=== PATIENT | male | born 1970 | race Caucasian/White ===

== ENCOUNTER 2018-06-07 11:36 | Emergency (ER) | payer BC ==
[2018-06-07 11:49] VITALS: RESP 18; TEMP 98.3
--- NOTE | 2018-06-07 12:05 | ED ---
General Adult HPI - General Chief complaint: Extremity Injury, Lower Stated complaint: Knee injury/popped Time Seen by Provider: 06/07/18 11:51 Source: patient Mode of arrival: wheelchair Limitations: no limitations - History of Present Illness Initial comments: Dictation was produced using [employer] dictation software. please excuse any grammatical, word or spelling errors. Chief Complaint: 48-year-old male with no significant comorbidities presents with right knee pain and swelling. History of Present Illness: Patient is a 48-year-old female approximately 2 hours prior to arrival patient was trying to move a dresser out of the bed of a truck. He states he was using a twisting motion Friday when he immediately felt a pop and significant weakness. Feels as though when he tries to stand his knee once to bend medially. He noted significant knee swelling immediately. Patient denies any history of any surgeries The ROS documented in this emergency department record has been reviewed and confirmed by me. Those systems with pertinent positive or negative responses have been documented in the HPI. All other systems are other negative and/or noncontributory. PHYSICAL EXAM: General Impression: Alert and oriented x3, not in acute distress HEENT: Normocephalic atraumatic, extra-ocular movements intact, pupils equal and reactive to light bilaterally, mucous membranes moist. Cardiovascular: Heart regular rate and rhythm, S1&S2 audible, no murmurs, rubs or gallops Chest: Lungs clear to auscultation bilaterally, no rhonchi, no wheeze, no rales Abdomen: Bowel sounds present, abdomen soft, non-tender, non-distended, no organomegaly Musculoskeletal: Pulses present and equal in all extremities, no peripheral edema Motor: no focal deficits noted Neurological: CN II-XII grossly intact, no focal motor or sensory deficits noted Skin: Intact with no visualized rashes Psych: Normal affect and mood Right knee: Significant joint effusion, no tenderness to the medial or lateral side of the knee. ED course: 48-year-old male with acute knee pain and swelling. Vital signs upon arrival are within acceptable limits. X-ray was performed showing joint effusion. Radiology is concerned about questionable lipohemarthrosis suggesting an occult fracture. This point there isn't any signs of tibial plateau fracture. Patient placed in the immobilizer. He is given prescription for by mouth analgesics. There is strong clinical suspicion of anterior cruciate ligament tear. Patient given prescription for crutches. He is told to be nonweightbearing until further notice by orthopedic surgery. Patient is Center agreeable to disposition. - Related Data Previous Rx's Medication Instructions Recorded HYDROcodone/APAP 5-325MG [[place] 1 tab PO Q6HR PRN 3 Days #12 tab 06/07/18 5-325] Allergies Allergy/AdvReac Type Severity Reaction Status Date / Time No Known Allergies Allergy Verified 06/07/18 11:48 Review of Systems ROS Statement: Those systems with pertinent positive or pertinent negative responses have been documented in the HPI. ROS Other: All systems not noted in ROS Statement are negative. Past Medical History Past Medical History: No Reported History History of Any Multi-Drug Resistant Organisms: None Reported Past Surgical History: No Surgical Hx Reported Past Psychological History: No Psychological Hx Reported Smoking Status: Current every day smoker Past Alcohol Use History: Occasional Past Drug Use History: None Reported General Exam Limitations: no limitations Course Vital Signs 06/07/18 11:48 Temperature 98.3 F Pulse Rate 72 Respiratory 18 Rate Blood Pressure 151/92 O2 Sat by Pulse 100 Oximetry Disposition Clinical Impression: Knee pain Disposition: HOME SELF-CARE Condition: Good Instructions (If sedation given, give patient instructions): Knee Pain (ED) Prescriptions: HYDROcodone/APAP 5-325MG [[place] 5-325] 1 tab PO Q6HR PRN 3 Days #12 tab PRN Reason: Severe Pain Is patient prescribed a controlled substance at d/c from ED?: Yes If prescribed controlled substance>3 days was MAPS reviewed?: Prescribed <3 Days Referrals: Philip Velez MD [STAFF PHYSICIAN] - 1-2 days Time of Disposition: 13:19
--- NOTE | 2018-06-07 13:02 | XR ---
EXAMINATION TYPE: XR knee complete RT , 3 VIEWS DATE OF EXAM ORDERED: 06/07/2018 HISTORY: Pain. COMPARISON: None. FINDINGS: Joint spaces are well maintained. There is a questionable likely hemarthrosis on the right . No discrete fracture is seen. IMPRESSION: QUESTIONABLE LIKELY HEMARTHROSIS SUGGEST AN OCCULT FRACTURE. NO DISCRETE FRACTURES IDENTIFIED.
[2018-06-07 13:43] VITALS: BP 136/96; PULSE 77
== END 2018-06-07 13:42 | disposition home or self-care (01) ==
LOC: EC 11:36
DX: M25.561 Pain in right knee (principal); F17.200 Nicotine dependence, unspecified, uncomplicated; X50.1XXA Overexertion from prolonged static or awkward postures, initial encounter
CPT/HCPCS: 73562; 99283; L1830

== ENCOUNTER → 2018-06-10 | Outpatient (CLI) | payer BC ==
--- NOTE | 2018-06-11 07:39 | CT ---
EXAMINATION TYPE: CT knee RT wo con DATE OF EXAM: 06/10/2018 COMPARISON: HISTORY: Right knee fx CT DLP: 265 mGycm Automated exposure control for dose reduction was used. Unenhanced CT of the right knee was performed in the axial sagittal and coronal planes with bone and soft tissue window settings reviewed. FINDINGS: There is a moderately comminuted and depressed fracture of the lateral tibial plateau. Fracture depre ssion is estimated at approximately 1.5 cm. Fracture extends into the intercondylar region. There is fracture displacement of 1 cm. No additional fractures are evident at this time. There is evidence of a hemarthrosis. No evidence for soft tissue mass. IMPRESSION: Moderately comminuted and depressed fracture of the lateral tibial plateau.
== END | disposition home or self-care (01) ==
LOC: RADCTMAIN 16:53
PROVIDERS: ATTEND Orthopaedic Surgery Sports Medicine
DX: S82.141A Displaced bicondylar fracture of right tibia, initial encounter for closed fracture (principal)

== ENCOUNTER 2022-11-12 07:43 | Day surgery (SDC) | payer BC ==
[2022-11-07 16:04] VITALS: BMI 30.8
[~2022-11-12 07:43] MED LIST: LACTATED RINGERS 1,000 ML IV SCH
[2022-11-12 08:14] VITALS: TEMP 97.3
[2022-11-12] MEDS ORDERED: PROPOFOL 10 MG/ML 20 ML VIAL IV ONE (08:49)
--- NOTE | 2022-11-12 08:54 | P.GSHP ---
History of Present Illness H&P Date: 11/12/22 Chief Complaint: Colon cancer screening 52-year-old male here for colonoscopy. He has not had 1 previously. No bowel complaints. No family history of colon cancer. Past Medical History Past Medical History: Hyperlipidemia, Hypertension Additional Past Medical History / Comment(s): take humira for eyes uvitis History of Any Multi-Drug Resistant Organisms: None Reported Past Surgical History: No Surgical Hx Reported Additional Past Surgical History / Comment(s): fracture right tibia plateau screws and plate, Past Anesthesia/Blood Transfusion Reactions: No Reported Reaction Smoking Status: Former smoker Medications and Allergies Home Medications Medication Instructions Recorded Confirmed Type Adalimumab [Humira Pen] 40 mg SQ [id number] 11/07/22 11/12/22 History Atorvastatin [Lipitor] 20 mg PO DAILY 11/07/22 11/07/22 History Losartan [Cozaar] 25 mg PO DAILY 11/07/22 11/07/22 History Allergies Allergy/AdvReac Type Severity Reaction Status Date / Time No Known Allergies Allergy Verified 11/12/22 07:56 Surgical - Exam Vital Signs Temp Pulse Resp BP Pulse Ox 97.3 F L 83 16 149/82 98 11/12/22 08:12 11/12/22 08:12 11/12/22 08:12 11/12/22 08:12 11/12/22 08:12 Physical exam: General: Well-developed, well-nourished HEENT: Normocephalic, sclerae nonicteric Abdomen: Nontender, nondistended Extremities: No edema Neuro: Alert and oriented Assessment and Plan (1) Colon cancer screening Narrative/Plan: Will proceed with colonoscopy at this time. Current Visit: Yes Status: Acute Code(s): Z12.11 - ENCOUNTER FOR SCREENING FOR MALIGNANT NEOPLASM OF COLON SNOMED Code(s): 085153938
--- NOTE | 2022-11-12 09:10 | P.PCN ---
Date of Procedure: 11/12/22 Procedure(s) Performed: PREOPERATIVE DIAGNOSIS: Colon cancer screening POSTOPERATIVE DIAGNOSIS: Colon polyps PROCEDURE: Colonoscopy with snare polypectomy ANESTHESIA: MAC SURGEON: Deng Nuñez M.D. SPECIMENS: Polyps ENDOSCOPIC PROCEDURE: The patient was placed on the endoscopy table in the left decubitus position. The Olympus colonoscope was inserted into the anus and passed under direct visualization to the base of the cecum. The appendiceal orifice was visualized. From that point the scope was slowly withdrawn inspecting all surfaces carefully. There were no neoplastic inflammatory or polypoid lesions throughout the cecum, ascending, transverse, and descending colon. In the sigmoid colon a small polyp was seen and removed using the snare with cautery technique. In the rectum there were 2 polyps both removed in a similar fashion. The remainder of the rectum was normal. There was no visible diverticulosis. Digital rectal examination was normal. The patient was taken to the recovery room in stable condition per anesthesia guidelines. RECOMMENDATIONS: Await biopsy results. Repeat colonoscopy likely 5 years.
[2022-11-12 09:18] VITALS: RESP 18
[2022-11-12 09:40] VITALS: BP 143/89; PULSE 78
== END 2022-11-12 09:44 | disposition home or self-care (01) ==
LOC: ORWHC2ENDO 07:43
PROVIDERS: ATTEND Surgery
DX: Z12.11 Encounter for screening for malignant neoplasm of colon (principal); D12.5 Benign neoplasm of sigmoid colon; D12.8 Benign neoplasm of rectum; E78.5 Hyperlipidemia, unspecified; I10 Essential (primary) hypertension; M06.9 Rheumatoid arthritis, unspecified; Z87.891 Personal history of nicotine dependence; Z79.899 Other long term (current) drug therapy; Z79.811 Long term (current) use of aromatase inhibitors
CPT/HCPCS: 88305; 45385; J2704